=== PATIENT | female | born 1960 | race Caucasian/White ===

== ENCOUNTER 2022-03-07 04:20 | Day surgery (SDC) | payer OTHER ==
[2022-03-03 10:52] VITALS: BMI 18.6
[2022-03-07] MEDS ORDERED: LIDOCAINE HCL 1% PRESERVATIVE FREE - 30ML VIAL IJ ONE ×2 (08:20)
[2022-03-07 10:07] VITALS: BP 111/79; PULSE 97; RESP 15; TEMP 97
== END 2022-03-07 10:12 | disposition home or self-care (01) ==
LOC: JASU-SURG 04:20
PROVIDERS: ATTEND Pain Medicine Pain Medicine
PROC: 01HY3MZ Insertion of Neurostimulator Lead into Peripheral Nerve, Percutaneous Approach (ICD-10-PCS; principal; 2022-03-07 08:11)
DX: G89.4 Chronic pain syndrome (principal); M79.642 Pain in left hand
CPT/HCPCS: 64555; C1897; C1778

== ENCOUNTER 2022-04-18 04:24 | Day surgery (SDC) | payer OTHER ==
[2022-04-12 10:03] VITALS: BMI 18.3
[2022-04-18] MEDS ORDERED: LIDOCAINE HCL/PF 1% SDV 5ML VIAL ONE (07:06)
[2022-04-18] MEDS ORDERED: LIDOCAINE HCL 1% PRESERVATIVE FREE - 30ML VIAL IJ ONE ×3 (09:12→09:20)
[2022-04-18 10:21] VITALS: BP 98/72; PULSE 83; RESP 18; TEMP 98.2
== END 2022-04-18 11:00 | disposition home or self-care (01) ==
LOC: JASU-SURG 04:24
PROVIDERS: ATTEND Pain Medicine Pain Medicine
PROC: 00HU3MZ Insertion of Neurostimulator Lead into Spinal Canal, Percutaneous Approach (ICD-10-PCS; principal; 2022-04-18 09:00)
DX: G89.4 Chronic pain syndrome (principal)
CPT/HCPCS: 64555; C1778

== ENCOUNTER 2022-04-28 04:37 | Day surgery (SDC) | payer OTHER ==
[2022-04-19 13:32] VITALS: BMI 18.3
[2022-04-28] MEDS ORDERED: LIDOCAINE HCL 1%, 10 MG/ML (20ML VIAL) ONE (13:11)
[2022-04-28] MEDS ORDERED: HEPARIN NA (PORCINE) 5,000 UNITS/ML 1ML VIAL ONE (13:11)
[2022-04-28] MEDS ORDERED: PAPAVERINE HCL 30 MG/1 ML 10 ML VIAL NR ONE (13:11)
[2022-04-28] MEDS ORDERED: POVIDONE-IODINE OINTMENT 10% - 28.4 GM TUBE ONE (13:12)
[2022-04-28] MEDS ORDERED: DEXMEDETOMIDINE HCL 200 MCG/2 ML IVPB ONE (15:13)
[2022-04-28] MEDS ORDERED: MIDAZOLAM HCL 2 MG/2 ML SINGLE DOSE VIAL ONE (15:14)
[2022-04-28] MEDS ORDERED: ceFAZolin SODIUM 1 GM VIAL ONE (15:46)
[2022-04-28] MEDS ORDERED: ceFAZolin SODIUM 1 GM VIAL IVPB ONE (15:50)
[2022-04-28] MEDS ORDERED: LIDOCAINE HCL 1%, 10 MG/ML (20ML VIAL) SQ ONE (16:08)
[2022-04-28] MEDS ORDERED: PROMETHAZINE HCL 25 MG/1 ML VIAL IVPUSH PRN (17:11)
[2022-04-28] MEDS ORDERED: ONDANSETRON 4 MG/2 ML VIAL IVPUSH PRN (17:11)
[2022-04-28] MEDS ORDERED: oxyCODONE HCL 5 MG TABLET PO PRN ×2 (17:11)
[2022-04-28] MEDS ORDERED: LACTATED RINGERS SOLUTION 1,000 ML IV SCH (17:15)
[2022-04-28] MEDS ORDERED: oxyCODONE HCL 5 MG TABLET ONE (18:17)
[2022-04-28 19:34] VITALS: RESP 18; TEMP 97.8
[2022-04-28 20:10] VITALS: BP 82/42; PULSE 72
== END 2022-04-28 20:00 | disposition home or self-care (01) ==
LOC: JASUSAT 04:37
PROVIDERS: ATTEND Surgery
PROC: 03170ZD Bypass Right Brachial Artery to Upper Arm Vein, Open Approach (ICD-10-PCS; principal; 2022-04-28 15:30)
DX: I12.0 Hypertensive chronic kidney disease with stage 5 chronic kidney disease or end stage renal disease (principal)
CPT/HCPCS: 94760; C9803-CS; J1644; U0003; U0005

== ENCOUNTER 2022-06-02 04:10 | Day surgery (SDC) | payer OTHER ==
[2022-05-31 14:28] VITALS: BMI 18.3
[~2022-06-02 04:10] MED LIST: LIDOCAINE 1% P/F 10 MG/ML VIAL INF ONE
[2022-06-02] MEDS ORDERED: LIDOCAINE HCL/PF 1% SDV 5ML VIAL ONE (07:27)
[2022-06-02 09:03] VITALS: BP 91/53; PULSE 98; RESP 20; TEMP 97.3
[2022-06-02] MEDS ORDERED: LIDOCAINE 1% P/F 10 MG/ML VIAL INF ONE (10:19)
== END 2022-06-02 13:20 | disposition home or self-care (01) ==
LOC: JASU-SURG 04:10
PROVIDERS: ATTEND Pain Medicine Pain Medicine
PROC: 01HY3MZ Insertion of Neurostimulator Lead into Peripheral Nerve, Percutaneous Approach (ICD-10-PCS; principal; 2022-06-02 09:45)
DX: G89.4 Chronic pain syndrome (principal); M79.641 Pain in right hand
CPT/HCPCS: 64555; C1778

== ENCOUNTER → 2022-07-03 | Day surgery (SDC) | payer OTHER ==
[2022-06-29 12:32] VITALS: BMI 18.3
[~2022-07-03] MED LIST changes: +BUPIVACAINE HCL/PF 0.5% (5MG/ML) 10 ML VIAL IJ ONE; +BUPIVACAINE HCL/PF 0.5% (5MG/ML) 10 ML VIAL ONE; +DEXAMETHASONE SOD PHOSPHATE 4 MG/1 ML VIAL ONE; +KETOROLAC TROMETHAMINE 30 MG/1 ML VIAL ONE; +LIDOCAINE HCL/PF 2% SDV 5ML VIAL ONE; +MIDAZOLAM HCL 2 MG/2 ML SINGLE DOSE VIAL ONE; +ONDANSETRON 4 MG/2 ML VIAL ONE; +PROPOFOL 20 ML ONE; +ceFAZolin SODIUM 1 GM VIAL IVPB ONE; +ceFAZolin SODIUM 1 GM VIAL ONE
[2022-07-03 10:50] VITALS: BP 94/68; PULSE 68; RESP 20; TEMP 96.8
== END | disposition home or self-care (01) ==
LOC: JASU-SURG 04:09
PROVIDERS: ATTEND Orthopaedic Surgery
PROC: 01N53ZZ Release Median Nerve, Percutaneous Approach (ICD-10-PCS; principal; 2022-07-03 09:00)
DX: G56.02 Carpal tunnel syndrome, left upper limb (principal)
CPT/HCPCS: 36415; 84132; 88304-TC

== ENCOUNTER 2022-07-07 04:00 | Day surgery (SDC) | payer OTHER ==
[2022-07-05 10:06] VITALS: BMI 18.3
[2022-07-07] MEDS ORDERED: LIDOCAINE HCL 1% PRESERVATIVE FREE - 30ML VIAL IJ ONE (10:47)
[2022-07-07] MEDS ORDERED: BUPIVACAINE HCL/PF 0.5% (5MG/ML) 10 ML VIAL IJ ONE (10:49)
[2022-07-07] MEDS ORDERED: IOHEXOL 180 MG/1 ML ML IJ ONE (10:49)
== END 2022-07-07 11:03 | disposition home or self-care (01) ==
LOC: JASU-SURG 04:00
PROVIDERS: ATTEND Pain Medicine Pain Medicine
DX: Z53.8 Procedure and treatment not carried out for other reasons (principal)

== ENCOUNTER 2022-07-14 05:18 | Day surgery (SDC) | payer OTHER ==
[2022-07-13 08:39] VITALS: BMI 18.3
[~2022-07-14 05:18] MED LIST changes: -BUPIVACAINE HCL/PF 0.5% (5MG/ML) 10 ML VIAL IJ ONE; -BUPIVACAINE HCL/PF 0.5% (5MG/ML) 10 ML VIAL ONE; -DEXAMETHASONE SOD PHOSPHATE 4 MG/1 ML VIAL ONE; +HEPARIN NA (PORCINE) 5,000 UNITS/ML 1ML VIAL SQ ONE; -KETOROLAC TROMETHAMINE 30 MG/1 ML VIAL ONE; -LIDOCAINE 1% P/F 10 MG/ML VIAL INF ONE; +LIDOCAINE HCL 1%, 10 MG/ML (20ML VIAL) NR ONE; -LIDOCAINE HCL/PF 2% SDV 5ML VIAL ONE; -MIDAZOLAM HCL 2 MG/2 ML SINGLE DOSE VIAL ONE; -ONDANSETRON 4 MG/2 ML VIAL ONE; -PROPOFOL 20 ML ONE; -ceFAZolin SODIUM 1 GM VIAL IVPB ONE; -ceFAZolin SODIUM 1 GM VIAL ONE
[2022-07-14] MEDS ORDERED: HEPARIN NA (PORCINE) 5,000 UNITS/ML 1ML VIAL ONE (13:35)
[2022-07-14] MEDS ORDERED: POVIDONE-IODINE OINTMENT 10% - 28.4 GM TUBE ONE (13:35)
[2022-07-14] MEDS ORDERED: ceFAZolin SODIUM 1 GM VIAL IVPB ONE (14:02)
[2022-07-14] MEDS ORDERED: MIDAZOLAM HCL 2 MG/2 ML SINGLE DOSE VIAL ONE ×3 (15:53→16:34)
[2022-07-14] MEDS ORDERED: LIDOCAINE HCL 1%, 10 MG/ML (20ML VIAL) NR ONE ×2 (16:04)
[2022-07-14] MEDS ORDERED: PROPOFOL 20 ML ONE (16:16)
[2022-07-14] MEDS ORDERED: HEPARIN NA (PORCINE) 5,000 UNITS/ML 1ML VIAL SQ ONE (16:25)
[2022-07-14] MEDS ORDERED: PROMETHAZINE HCL 25 MG/1 ML VIAL IVPB PRN (16:44)
[2022-07-14] MEDS ORDERED: ONDANSETRON 4 MG/2 ML VIAL IVPUSH PRN (16:44)
[2022-07-14] MEDS ORDERED: oxyCODONE HCL 5 MG TABLET PO PRN (16:44)
[2022-07-14] MEDS ORDERED: SODIUM CHLORIDE 1,000 ML IV SCH (16:45)
[2022-07-14] MEDS ORDERED: oxyCODONE HCL 5 MG TABLET ONE (19:04)
[2022-07-14] MEDS ORDERED: oxyCODONE HCL 5 MG TABLET PO ONE (19:05)
[2022-07-14 20:06] VITALS: BP 77/38; PULSE 101; RESP 18; TEMP 98
== END 2022-07-14 20:00 | disposition home or self-care (01) ==
LOC: JASU-SURG 05:18
PROVIDERS: ATTEND Surgery
PROC: 03150JD Bypass Right Axillary Artery to Upper Arm Vein with Synthetic Substitute, Open Approach (ICD-10-PCS; principal; 2022-07-14 15:30)
DX: I12.0 Hypertensive chronic kidney disease with stage 5 chronic kidney disease or end stage renal disease (principal); N18.6 End stage renal disease; Z99.2 Dependence on renal dialysis
CPT/HCPCS: 36415; 84132; 94760; C1768; J1644

== ENCOUNTER 2022-08-11 04:08 | Day surgery (SDC) | payer OTHER ==
[2022-08-10 12:17] VITALS: BMI 18.3
[~2022-08-11 04:08] MED LIST changes: +BUPIVACAINE HCL/PF 0.25% (2.5MG/ML) 10 ML VIAL IJ ONE; +DEXAMETHASONE SOD PHOSPHATE 10 MG/1 ML VIAL IM ONE; -HEPARIN NA (PORCINE) 5,000 UNITS/ML 1ML VIAL SQ ONE; +IOHEXOL 180 MG/1 ML ML IJ ONE; +LIDOCAINE HCL 1% PRESERVATIVE FREE - 30ML VIAL IJ ONE; -LIDOCAINE HCL 1%, 10 MG/ML (20ML VIAL) NR ONE
[2022-08-11 09:52] VITALS: RESP 20
[2022-08-11] MEDS ORDERED: LIDOCAINE HCL 1% PRESERVATIVE FREE - 30ML VIAL IJ ONE (11:33)
[2022-08-11] MEDS ORDERED: IOHEXOL 180 MG/1 ML ML IJ ONE (11:36)
[2022-08-11] MEDS ORDERED: DEXAMETHASONE SOD PHOSPHATE 10 MG/1 ML VIAL IM ONE (11:48)
[2022-08-11] MEDS ORDERED: BUPIVACAINE HCL/PF 0.25% (2.5MG/ML) 10 ML VIAL IJ ONE (11:48)
[2022-08-11] MEDS ORDERED: ACETAMINOPHEN 500 MG TABLET (FP) PO PRN (11:58)
[2022-08-11 12:23] VITALS: BP 112/62; PULSE 97; TEMP 98.2
== END 2022-08-11 12:30 | disposition home or self-care (01) ==
LOC: JASU-SURG 04:08
PROVIDERS: ATTEND Pain Medicine Pain Medicine
PROC: 3E0T3BZ Introduction of Anesthetic Agent into Peripheral Nerves and Plexi, Percutaneous Approach (ICD-10-PCS; 2022-08-11)
PROC: 3E0T33Z Introduction of Anti-inflammatory into Peripheral Nerves and Plexi, Percutaneous Approach (ICD-10-PCS; principal; 2022-08-11 10:45)
DX: G89.4 Chronic pain syndrome (principal); M79.622 Pain in left upper arm
CPT/HCPCS: 76000-TC-FY; J1100

== ENCOUNTER 2022-09-27 13:51 | Day surgery (SDC) | payer OTHER ==
[2022-09-27 14:56] LABS: MCHC 32.3 g/dl (32.0-36.0); MEAN PLT VOLUME 7.2 fl (7.5-11.1); PLATELET COUNT 328 10^3/uL (134-434); RBC 3.33 M/mm3 (3.60-5.2); RDW 20.8 % (11.6-15.6); WHITE BLOOD COUNT 6.4 K/mm3 (4.0-10.0)
[2022-09-27 15:01] LABS: INR 1.03 (0.83-1.09); PROTHROMBIN TIME (PATIENT) 11.9 SEC (9.7-13.0)
[2022-09-27 15:03] LABS: ACTIVATED PTT 29.5 SECONDS (25.2-36.5)
[2022-09-27 15:17] LABS: CALCIUM 7.8 mg/dL (8.5-10.1)
[2022-09-27 15:18] LABS: ALBUMIN 3.2 g/dl (3.4-5.0); BLOOD UREA NITROGEN 23.9 mg/dL (7-18)
[2022-09-27 15:21] LABS: CREATININE 7.2 mg/dL (0.55-1.3)
[2022-09-27 15:22] LABS: BILIRUBIN,TOTAL 0.4 mg/dL (0.2-1); TOT PROT 7.4 g/dl (6.4-8.2)
[2022-09-27 15:23] LABS: ANISOCYTOSIS 0; MACROCYTOSIS 1+
[2022-09-27] MEDS ORDERED: PATIENT'S OWN MEDICATION (NON-FORMULARY) (Hydrocodone/Acetaminophen 1 TAB Tablet) PO PRN (15:51)
[2022-09-27] MEDS ORDERED: POLYETHYLENE GLYCOL (HEALTHYLAX) 3350 17 GM PACKET PO PRN (15:51)
[2022-09-27 17:06] LABS: HEMATOCRIT 32.6 % (32.4-45.2); HEMOGLOBIN 10.2 GM/dL (10.7-15.3); MCH 32.8 pg (25.7-33.7); MCHC 31.3 g/dl (32.0-36.0); MEAN CELL VOLUME 104.9 fl (80-96); MEAN PLT VOLUME 7.5 fl (7.5-11.1); PLATELET COUNT 327 10^3/uL (134-434); RBC 3.11 M/mm3 (3.60-5.2); RDW 21.3 % (11.6-15.6)
[2022-09-27 17:43] LABS: CHLORIDE 106 mmol/L (98-107); SODIUM 140 mmol/L (136-145)
[2022-09-27 17:51] LABS: BLOOD UREA NITROGEN 23.8 mg/dL (7-18); CALCIUM 7.4 mg/dL (8.5-10.1); CO2 14 mmol/L (21-32); GLUCOSE,RANDOM 79 mg/dL (74-106); MAGNESIUM 2.6 mg/dL (1.8-2.4)
[2022-09-27 17:55] LABS: CREATININE 7.2 mg/dL (0.55-1.3)
[2022-09-27 18:33] VITALS: BMI 16.5
[2022-09-27 19:29] LABS: ANION GAP 20 MMOL/L (8-16); PHOSPHOROUS > 9.0 mg/dL (2.5-4.9); POTASSIUM 2.7 mmol/L (3.5-5.1)
[2022-09-27] MEDS: POTASSIUM CHLORIDE TABS 20 MEQ TABLET.ER (FP) PO SCH (21:11)
[2022-09-27 22:22] LABS: POTASSIUM 2.8 mmol/L (3.5-5.1)
[2022-09-27] MEDS ORDERED: POTASSIUM CHLORIDE ORAL LIQUID 20 MEQ/15 ML PO ONE (22:59)
[2022-09-28] MEDS: KCL 10 MEQ IVPB 10 MEQ/100 ML INFUS.BAG IVPB SCH ×3 (00:21→00:26)
[2022-09-28] MEDS: POTASSIUM CHLORIDE TABS 20 MEQ TABLET.ER (FP) PO SCH (05:32)
[2022-09-28] MEDS ORDERED: SODIUM CHLORIDE 250 ML IV PRN ×2 (07:24→08:04)
[2022-09-28] MEDS ORDERED: LIDOCAINE HCL 1%, 10 MG/ML (10ML VIAL) MDV ONE (07:26)
[2022-09-28] MEDS ORDERED: HEPARIN NA (PORCINE) 5,000 UNITS/ML 1ML VIAL ONE ×2 (07:26→08:21)
[2022-09-28] MEDS ORDERED: PAPAVERINE HCL 30 MG/1 ML 10 ML VIAL NR ONE (07:26)
[2022-09-28] MEDS ORDERED: CALCIUM ACETATE 667 MG CAPSULE (FP) PO SCH (08:00)
[2022-09-28] MEDS ORDERED: HEPARIN NA (PORCINE) 5,000 UNITS/ML 1ML VIAL IVPUSH ONE (08:04)
[2022-09-28] MEDS ORDERED: PROMETHAZINE HCL 25 MG/1 ML VIAL IVPB PRN ×2 (08:54→11:27)
[2022-09-28] MEDS ORDERED: ONDANSETRON 4 MG/2 ML VIAL IVPUSH PRN ×2 (08:54→11:27)
[2022-09-28] MEDS ORDERED: PROPOFOL 20 ML ONE (08:57)
[2022-09-28] MEDS ORDERED: MIDAZOLAM HCL 2 MG/2 ML SINGLE DOSE VIAL ONE ×2 (08:57→09:44)
[2022-09-28] MEDS ORDERED: SODIUM CHLORIDE 0.9% P/F 10 ML VIAL IJ ONE (08:58)
[2022-09-28] MEDS ORDERED: ceFAZolin SODIUM 1 GM VIAL ONE (08:58)
[2022-09-28] MEDS ORDERED: SODIUM CHLORIDE 1,000 ML IV SCH ×2 (09:00→11:27)
[2022-09-28 09:29] LABS: CHLORIDE 112 mmol/L (98-107); POTASSIUM 4.3 mmol/L (3.5-5.1); SODIUM 141 mmol/L (136-145)
[2022-09-28 09:30] LABS: ANION GAP 17 MMOL/L (8-16); CO2 12 mmol/L (21-32); GLUCOSE,RANDOM 72 mg/dL (74-106)
[2022-09-28 09:31] LABS: BLOOD UREA NITROGEN 21.9 mg/dL (7-18)
[2022-09-28] MEDS ORDERED: ceFAZolin SODIUM 1 GM VIAL IVPB ONE (09:34)
[2022-09-28 09:41] LABS: CALCIUM 6.9 mg/dL (8.5-10.1); CREATININE 7.8 mg/dL (0.55-1.3)
[2022-09-28] MEDS ORDERED: LIDOCAINE HCL 1%, 10 MG/ML (20ML VIAL) NR ONE (09:49)
[2022-09-28] MEDS ORDERED: PATIENT'S OWN MEDICATION (NON-FORMULARY) (Linaclotide [Linzess] 290 MCG Capsule) PO SCH (10:00)
[2022-09-28] MEDS ORDERED: ACETAMINOPHEN PO PRN ×2 (11:27→14:03)
[2022-09-28] MEDS ORDERED: POLYETHYLENE GLYCOL (HEALTHYLAX) 3350 17 GM PACKET PO PRN (11:27)
[2022-09-28] MEDS ORDERED: HYDROCODONE PO PRN ×2 (11:27→14:03)
[2022-09-28 11:43] VITALS: TEMP 98.2
[2022-09-28] MEDS ORDERED: POTASSIUM CHLORIDE TABS 20 MEQ TABLET.ER (FP) PO SCH (14:00)
[2022-09-28] MEDS: HEPARIN NA (PORCINE) 5,000 UNITS/ML 1ML VIAL IVPUSH SCH (16:22)
[2022-09-28 16:50] VITALS: RESP 18
[2022-09-28 18:07] VITALS: BP 103/52; PULSE 88
[2022-09-29] MEDS ORDERED: CALCIUM ACETATE 667 MG CAPSULE (FP) PO SCH ×2 (08:00)
[2022-09-29] MEDS ORDERED: PATIENT'S OWN MEDICATION (NON-FORMULARY) (Linaclotide [Linzess] 290 MCG) PO SCH ×2 (10:00)
== END 2022-09-28 18:25 | disposition home or self-care (01) ==
LOC: JOR 13:51 → UNDOADMIN 15:53 → JERBED 15:53 → J5S 17:11 → JASUSAT 09-28 13:51 → J5S 09-28 14:04 → JASUSAT 09-28 18:25
PROVIDERS: ATTEND Surgery
PROC: 03C53ZZ Extirpation of Matter from Right Axillary Artery, Percutaneous Approach (ICD-10-PCS; 2022-09-28)
PROC: 05C73ZZ Extirpation of Matter from Right Axillary Vein, Percutaneous Approach (ICD-10-PCS; principal; 2022-09-28 09:00)
DX: T82.868A Thrombosis due to vascular prosthetic devices, implants and grafts, initial encounter (principal); N18.6 End stage renal disease; Z99.2 Dependence on renal dialysis
CPT/HCPCS: 36906; L8699; 0241U-QW; 36415; 76000-TC-FY; 80048; 80053; 83735; 84100; 84132; 85025; 85027; 85610; 85730; 86803; 86850; 86900; 86901; 87340; 94760; 99285-25; C1757; C1874; J1644

== ENCOUNTER 2022-11-03 05:30 | Day surgery (SDC) | payer OTHER ==
[2022-11-01 15:03] VITALS: BMI 17.6
[~2022-11-03 05:30] MED LIST changes: +ACETAMINOPHEN 500 MG TABLET (FP) PO PRN; -BUPIVACAINE HCL/PF 0.25% (2.5MG/ML) 10 ML VIAL IJ ONE
[2022-11-03] MEDS ORDERED: DEXAMETHASONE SOD PHOSPHATE 10 MG/1 ML VIAL ONE (07:32)
[2022-11-03] MEDS ORDERED: LIDOCAINE HCL/PF 1% SDV 5ML VIAL ONE (07:32)
[2022-11-03] MEDS ORDERED: DEXAMETHASONE SOD PHOSPHATE 4 MG/1 ML VIAL ONE (07:32)
[2022-11-03] MEDS ORDERED: ACETAMINOPHEN 500 MG TABLET (FP) PO PRN (12:23)
== END 2022-11-03 10:20 | disposition home or self-care (01) ==
LOC: JASU-SURG 05:30
PROVIDERS: ATTEND Pain Medicine Pain Medicine
DX: Z53.8 Procedure and treatment not carried out for other reasons (principal)
CPT/HCPCS: J1100